=== PATIENT | female | born 1960 | race Caucasian/White ===

== ENCOUNTER → 2021-01-02 13:15 | Outpatient (CLI) | payer BC, SELFPAY ==
--- NOTE | ~2021-01-02 | MM_ITS ---
EXAMINATION: MM screening [facility] BI w carlos HISTORY: Screening mammogram TECHNIQUE: Craniocaudal and mediolateral oblique 3-D tomosynthesis images were obtained and synthetic 2-D images were generated. CAD analysis was submitted and interpreted. COMPARISON: 03/23/2015, 08/24/2008, 08/14/2008 BREAST PARENCHYMAL COMPOSITION: The breasts are almost entirely fatty. FINDINGS: There is no evidence of suspicious mass, calcification, or architectural distortion to sugg est malignancy in either breast. There has been no suspicious interval change. IMPRESSION: 1. No mammographic evidence of malignancy. 2. Recommend routine screening mammography in one year. BI-RADS Category 1: Negative Reviewed, dictated and finalized at location A.
== END ==
PROVIDERS: PCP Family Medicine; Visit Provider Family Medicine
DX: Z12.31 Encounter for screening mammogram for malignant neoplasm of breast (principal)
CPT/HCPCS: 77063; 77067

== ENCOUNTER → 2022-07-30 15:21 | Outpatient (CLI) | payer BC, SELFPAY ==
--- NOTE | ~2022-07-30 | CT_ITS ---
EXAMINATION: CT lung screening DATE: 07/30/2022 16:11 INDICATION: Personal history of nicotine dependence, prior smoker with 30 pack year history TECHNIQUE: Computed tomography (CT) of the chest was performed without intravenous contrast. The dose -length product (DLP) was 147.56 mGy-cm. Automated exposure control and iterative reconstruction tech BUX were employed. COMPARISON: None FINDINGS: There is mild emphysema. There is a 2 mm nodule of the right upper lobe. The lungs are free of acute opacities. Calcified pulmonary nodules are consistent with old granulomatous disease. Calci fied coronary artery atherosclerosis is noted. No pathologically enlarged thoracic lymph nodes are id entified. The heart size is normal. The gallbladder is surgically absent. There is mild thoracic spon dylosis. IMPRESSION: 1. Lung-RADS category 2: Benign appearance or behavior. Continue annual screening with noncontrast lo w-dose chest CT in 12 months. Reviewed, dictated and finalized at location L. MING INSPECTOR IMPRESSION: 1. Lung-RADS category 2: Benign appearance or behavior. Continue annual screeni ng with noncontrast low-dose chest CT in 12 months.
== END ==
PROVIDERS: PCP Family Medicine; Visit Provider Family Medicine
DX: Z12.2 Encounter for screening for malignant neoplasm of respiratory organs (principal); Z87.891 Personal history of nicotine dependence; R05.9 Cough, unspecified; R06.2 Wheezing
CPT/HCPCS: 71271

== ENCOUNTER 2022-08-08 14:32 | Outpatient (CLI) | payer BC, SELFPAY ==
--- NOTE | 2022-08-08 15:43 | WPDPFTINT ---
PFT Procedure Performed PFT Procedure Performed Spirometry with Pre/Post Bronchodilator Plethysmography (Lung Vol) Diffusing Cap (DLCO) Flow Vol Loop PFT Interpretation This is a pulmonary function test with pre and post-bronchodilator spirometry, plethysmography and diffusing capacity. The test was performed and results interpreted in accordance with the 2019 and 2005 ATS/ERS Task Force guidelines respectively using the Global Lung Function Initiative-2012 reference equations. Patient demonstrated good effort and cooperation. Reproducibility criteria were met. The quality of the pre bronchodilator spirometry maneuver was Grade B and post bronchodilator spirometry maneuver was Grade B. Findings: Spirometry: the contour the inspiratory and expiratory flow tracing are normal. The pre bronchodilator FVC is 2.97 L, 92% predicted. The pre bronchodilator FEV1 is 2.26 L, 89% predicted. The pre bronchodilator FEV1: FVC ratio 76%. The post bronchodilator FVC is 3.01 L, representing 1% increase. The post bronchodilator FEV1 is 2.35 L, representing a 4% increase. The post bronchodilator FEV1: FVC ratio 78%. Plethysmography: The total lung capacity is 4.60 L, 89% predicted. The functional residual capacity is 1.99 L, 68% predicted. The residual volume is 1.63 L, 79% predicted. Diffusing capacity: The diffusing capacity unadjusted for hemoglobin and carboxyhemoglobin hemoglobin is 16.5, 75% predicted. The diffusing capacity adjusted for alveolar volume is 4.14, 95% predicted. Impression: The spirometry is normal without evidence of an obstructive abnormality. There is no significant improvement after inhaling a single dose of albuterol. The lung volumes are normal. The diffusing capacity is normal. There are no prior studies for comparison
== END 2022-08-08 14:33 | disposition home or self-care (01) ==
LOC: ANHPFT 14:33
PROVIDERS: PCP Family Medicine; Visit Provider Family Medicine
DX: R06.2 Wheezing (principal); J43.9 Emphysema, unspecified; Z87.891 Personal history of nicotine dependence; Z72.89 Other problems related to lifestyle
CPT/HCPCS: 94060; 94726; 94729

== ENCOUNTER 2022-10-31 08:06 | Outpatient (CLI) | payer BC, SELFPAY ==
[2022-10-31 10:57] LABS: Toxigenic C. Diff NEGATIVE (NEGATIVE)
== END 2022-10-31 08:07 | disposition home or self-care (01) ==
LOC: ANHLAB 08:07
PROVIDERS: PCP Family Medicine; Visit Provider Nurse Practitioner Family
DX: R19.7 Diarrhea, unspecified (principal)
CPT/HCPCS: 87493

== ENCOUNTER 2022-11-13 00:54 | Day surgery (SDC) | payer BC, SELFPAY ==
[2022-11-03 14:43] VITALS: BMI 32.5
--- NOTE | 2022-11-12 15:11 | PM.HPGS ---
History of Present Illness History of Present Illness Consent: Risks, benefits, and alternatives have been discussed and questions answered. Patient agrees to proceed with procedure. Chief complaint: diarrhea Narrative: Judy Moss is a 62 year old female referred?for evaluation of diarrhea. She reports approximately 10 episodes of non-bloody watery stools with nighttime awakening and urgency since August 26. ? States symptoms came on abruptly.? She reports associated intermittent lower abdominal cramping that improves after bowel movement.? Recent stool studies, O and P, and Giardia were negative.? She was noted to have a mildly elevated stool calprotectin at 121. ? She denies any family history of ulcerative colitis or Crohn's disease.? She reports diarrhea most often occurs 10-40 minutes after eating but cannot identify any specific food that makes her symptoms worse.? Approximately 1 month prior to the diarrhea starting she began Saxenda for weight loss, she stop this 3 weeks ago with no improvement in her diarrhea. ? She denies any recent antibiotic use, recent travel or sick contacts. No Nsaid use. She reports a 20 lb weight loss since this has started.? Review of Systems Review of Systems: All systems reviewed & are unremarkable except as noted in HPI and below PMFSH Family History Family History Mother Family history of thyroid disease Diabetes mellitus Hypertension Family history of elevated blood lipids Family history of malignant neoplasm Sibling Family history of thyroid disease Father Diabetes mellitus Hypertension Family history of elevated blood lipids Grandparent Family history of malignant neoplasm Family history of malignant neoplasm of breast Social History Social History Smoking packs per day: 1 Smoking cigarettes per day: 20.0 Years smoked: 30 Smoking pack-years: 30.00 Smoking status: Current every day smoker Tobacco type: cigarettes Smoking end date: 07/20/14 Additional smoking assessment comments: vapes e-cigarette daily Alcohol intake: current Drinks per week: 4 Substance use: never Substance use type: does not use Lack of Transportation: No Lack of Food: Never True Current Housing: I Have Housing Concerned About Future Housing: No Difficulty Paying Gas/Electric Bills: No Difficulty Paying for Meds: No Currently Unemployed: No Education: Bachelor's Degree Difficulty w/ Childcare or Family Care: No Living arrangements: alone Spiritual care concerns: No Meds Home Medications and Allergies Home Medications Medication Instructions Recorded Confirmed Type telmisartan 20 mg tablet 20 mg PO DAILY #90 tabs 03/20/22 11/03/22 Rx levalbuterol tartrate 45 2 inh inhalation Q6H #15 grams 05/01/22 11/03/22 Rx mcg/actuation aerosol inhaler liraglutide (weight loss) 3 mg/0.5 See Rx Instructions subcut 07/23/22 11/03/22 Rx mL (18 mg/3 mL) subcut pen injector .COMPLEX #15 mL pen needle, diabetic 32 gauge x #100 ea 10/16/22 Rx (BD Natalya 2nd Gen Pen Needle) Allergies Allergy/AdvReac Type Severity Reaction Status Date / Time beef derived (bovine) Allergy Unknown diarrhea Verified 11/13/22 09:40 codeine Allergy Unknown hallucinati Verified 11/13/22 09:40 on metformin AdvReac Intermediate Diarrhea Verified 11/13/22 09:40 Exam Const: General: alert Orientation/consciousness: patient oriented x3 Resp: Auscultation: clear to auscultation bilaterally Cardio: Rhythm: regular rhythm GI: GI Palp: Yes Soft to palpation and No Tenderness to palpation present (GI) Neuro: General: patient oriented x3 Assessment and Plan Assessment and plan (1) Diarrhea: Code(s): R19.7 - Diarrhea, unspecified Status: Acute Assessment and Plan: Colonoscopy with possible biopsy or polypectomy or cautery or injectio
[2022-11-13 09:41] VITALS: BP 126/93; PULSE 116; RESP 19; TEMP 36.4; O2SAT 99
[2022-11-13] MEDS: LACTATED RINGERS 1,000 ML 150 ML IV CONT (09:51)
--- NOTE | 2022-11-13 10:24 | WPDANESEPPF ---
Anes - Initial Pre Proc Eval Procedure: Operation Date: 11/13/22 11:00 Proposed Procedures p Colonoscopy - Joseph Concepcion MD Date/Time: 11/13/22 10:24 Surgeon: Joseph Concepcion MD Pre Op Diagnosis: diarrhea Patient Data Age: 62 Gender: F Height: 1.65 m Weight: 88.5 kg Last Vital Signs Temp 36.4 C L 11/13/22 09:41 Pulse 116 H 11/13/22 09:41 Resp 19 11/13/22 09:41 BP 126/93 H 11/13/22 09:41 Pulse Ox 99 11/13/22 09:41 O2 Del Method Room Air 11/13/22 09:41 Allergies Allergy/AdvReac Type Severity Reaction Status Date / Time beef derived (bovine) Allergy Unknown diarrhea Verified 11/13/22 09:40 codeine Allergy Unknown hallucinati Verified 11/13/22 09:40 on metformin AdvReac Intermediate Diarrhea Verified 11/13/22 09:40 Home Medications Medication Instructions Recorded Confirmed Type telmisartan 20 mg tablet 20 mg PO DAILY #90 tabs 03/20/22 11/03/22 Rx levalbuterol tartrate 45 2 inh inhalation Q6H #15 grams 05/01/22 11/03/22 Rx mcg/actuation aerosol inhaler liraglutide (weight loss) 3 mg/0.5 See Rx Instructions subcut 07/23/22 11/03/22 Rx mL (18 mg/3 mL) subcut pen injector .COMPLEX #15 mL pen needle, diabetic 32 gauge x #100 ea 10/16/22 Rx 32 (BD Natalya 2nd Gen Pen Needle) Patient hx anesthesia problems: none Family hx anesthesia problems: none Results Review: All pre-operative results and documents have been reviewed as part of the pre-operative evaluation. [facility] Family History Family History Mother Family history of thyroid disease Diabetes mellitus Hypertension Family history of elevated blood lipids Family history of malignant neoplasm Sibling Family history of thyroid disease Father Diabetes mellitus Hypertension Family history of elevated blood lipids Grandparent Family history of malignant neoplasm Family history of malignant neoplasm of breast Social History Social History Smoking packs per day: 1 Smoking cigarettes per day: 20.0 Years smoked: 30 Smoking pack-years: 30.00 Smoking status: Current every day smoker Tobacco type: cigarettes Smoking end date: 07/20/14 Additional smoking assessment comments: vapes e-cigarette daily Alcohol intake: current Drinks per week: 4 Substance use: never Substance use type: does not use Lack of Transportation: No Lack of Food: Never True Current Housing: I Have Housing Concerned About Future Housing: No Difficulty Paying Gas/Electric Bills: No Difficulty Paying for Meds: No Currently Unemployed: No Education: Bachelor's Degree Difficulty w/ Childcare or Family Care: No Living arrangements: alone Spiritual care concerns: No Anes - Eval Final PreProcedure Day of Procedure 11/13/22 10:24 Patient weight: obese Heart: regular rate and rhythm Lungs: decreased breath sounds Airway: Mallampati scale class II Neurological: alert and oriented Last oral intake: >/= 8 hours ASA classification: III Emergent: no Anesthetic plan: proceed Anesthesia type and monitoring: general GIVS and standard monitoring Results Review: All pre-operative results and documents have been reviewed as part of the pre-operative evaluation. Informed Consent: The patient's anesthetic plan and its attendant risks and benefits were discussed with the patient/family/POA. Questions were solicited and answers provided to the satisfaction of the patient/family/POA.
[2022-11-13 10:45] VITALS: BP 115/71; PULSE 97; RESP 19; O2SAT 97
[2022-11-13 10:55] VITALS: BP 118/76; PULSE 92; RESP 20; O2SAT 100
--- NOTE | 2022-11-13 11:06 | SUR.PHASEII ---
Patient had some complaints of nausea and cramping. BRAZE OPERATOR provided Ondansetron and Famotidine. Patient stated nausea and cramping is improving after those had been given.
== END 2022-11-13 11:23 | disposition home or self-care (01) ==
PROVIDERS: PCP Family Medicine; Visit Provider Internal Medicine Gastroenterology
PROC: 0DJD8ZZ Inspection of Lower Intestinal Tract, Via Natural or Artificial Opening Endoscopic (ICD-10-PCS; CPT 45378; principal; 2022-11-13 11:00)
DX: K52.832 Lymphocytic colitis (principal); Z79.51 Long term (current) use of inhaled steroids; Z79.899 Other long term (current) drug therapy; F17.290 Nicotine dependence, other tobacco product, uncomplicated; E66.9 Obesity, unspecified; Z68.32 Body mass index [BMI] 32.0-32.9, adult
CPT/HCPCS: 45380; 88305; J0131; J2704; J7120

== ENCOUNTER 2023-02-03 08:25 | Outpatient (CLI) | payer BC, SELFPAY ==
--- NOTE | 2023-02-03 11:15 | NEURO_ITS ---
Impression: # Complains of cramps in lower extremities. # Normal Nerve Conduction Study. # Normal needle/EMG without any evidence of myotonia or denervation potentials. # Clinical correlation recommended. Nerve Conduction Studies Anti Sensory Summary Table Stim Site NR Peak (ms) P-T Amp (?V) Site1 Site2 Delta-P (ms) Dist (cm) Sam (m/s) Left Sup Fibular Anti Sensory (Ant Lat Mall) 14 cm 3.5 1.7 14 cm Ant Lat Mall 3.5 16.0 46 Right Sup Fibular Anti Sensory (Ant Lat Mall) 14 cm 3.6 12.3 14 cm Ant Lat Mall 3.6 16.0 44 Left Sural Anti Sensory (Lat Mall) Calf 4.2 10.1 Calf Lat Mall 4.2 18.0 43 Right Sural Anti Sensory (Lat Mall) Calf 4.1 4.7 Calf Lat Mall 4.1 18.0 44 Motor Summary Table Stim Site NR Onset (ms) O-P Amp (mV) Site1 Site2 Delta-0 (ms) Dist (cm) Sam (m/s) Left Peroneal Motor (Vastus Med) Ankle 4.1 1.0 Popit Ankle 8.9 41.0 46 Popit 13.0 3.1 Right Peroneal Motor (Vastus Med) Ankle 4.0 4.1 Popit Ankle 6.9 37.0 54 Popit 10.9 3.8 Left Tibial Motor (Abd Sheets Brev) Ankle 4.5 7.6 Knee Ankle 9.0 42.0 47 Knee 13.5 6.1 Right Tibial Motor (Abd Sheets Brev) Ankle 4.3 6.8 Knee Ankle 9.2 40.0 43 Knee 13.5 4.4 F Wave Studies NR F-Lat (ms) L-R F-Lat (ms) Left Peroneal (Mrkrs) (EDB) 50.19 0.00 Right Peroneal (Mrkrs) (EDB) 50.19 0.00 Left Tibial (Mrkrs) (Abd Hallucis) 51.69 0.32 Right Tibial (Mrkrs) (Abd Hallucis) 51.37 0.32 EMG Side Muscle Nerve Root Ins Act Fibs Amp Dur Recrt Comment Right AntTibialis Dp Br Fibular L4-5 Nml Nml Nml Nml Nml Right Gastroc Tibial S1-2 Nml Nml Nml Nml Nml Right Fibularis Long Sup Br Fibular L5-S1 Nml Nml Nml Nml Nml Right Flex Dig Long Tibial L5-S2 Nml Nml Nml Nml Nml Right Ext Dig Brev Dp Br Fibular L5, S1 Nml Nml Nml Nml Nml Left AntTibialis Dp Br Fibular L4-5 Nml Nml Nml Nml Nml Left Gastroc Tibial S1-2 Nml Nml Nml Nml Nml Left Fibularis Long Sup Br Fibular L5-S1 Nml Nml Nml Nml Nml Left Flex Dig Long Tibial L5-S2 Nml Nml Nml Nml Nml Left Ext Dig Brev Dp Br Fibular L5, S1 Nml Nml Nml Nml Nml MTDD
== END 2023-02-03 08:26 | disposition home or self-care (01) ==
LOC: ANHNEURO 08:28
PROVIDERS: PCP Family Medicine; Visit Provider Family Medicine
DX: R25.2 Cramp and spasm (principal)
CPT/HCPCS: 95886; 95910

== ENCOUNTER 2023-02-25 14:01 | Outpatient (CLI) | payer BC, SELFPAY ==
--- NOTE | ~2023-02-25 | US_ITS ---
EXAMINATION: US arterial ankle brachial ind DATE: 02/25/2023 15:19 INDICATION: Lower limb nocturnal cramping. TECHNIQUE: Segmental pressures and plethysmographic and Doppler waveforms of the brachial and lower e xtremity arteries were obtained. COMPARISON: None. FINDINGS: Right and left brachial artery pressures of 123 mm Hg and 141 mm Hg, respectively, are concordant (no rmal difference <= 30 mmHg). The right ankle-brachial index (LUIS ANGEL) is 1.01 (normal >= 0.9-1.0). The right great toe-brachial index (TBI) is 0.57 (normal >= 0.65). Arterial Doppler waveforms are biphasic with brisk systolic upstrokes at both right posterior tibial and dorsalis pedis arteries. The left LUIS ANGEL is 0.99. The left TBI is 0.57. Arterial Doppler waveforms are biphasic with brisk systol ic upstrokes at both left posterior tibial and dorsalis pedis arteries. IMPRESSION: 1. Mild arterial occlusive disease to the bilateral lower limbs with borderline bilateral ABIs and mi ldly decreased bilateral TBI's Reviewed, dictated and finalized at location B. IMPRESSION: 1. Mild arterial occlusive disease to the bilateral lower limbs with borderline bilateral ABIs and mildly decreased bilateral TBI's
== END 2023-02-25 14:02 | disposition home or self-care (01) ==
LOC: ANHIMG 14:02
PROVIDERS: PCP Family Medicine; Visit Provider Family Medicine
DX: R25.2 Cramp and spasm (principal); I73.9 Peripheral vascular disease, unspecified
CPT/HCPCS: 93922

== ENCOUNTER → 2023-08-01 09:41 | Outpatient (CLI) | payer BC, SELFPAY ==
--- NOTE | ~2023-08-01 | MM_ITS ---
EXAMINATION: MM screening [facility] BI w carlos HISTORY: Screening TECHNIQUE: Craniocaudal and mediolateral oblique 3-D tomosynthesis images were obtained and synthetic 2-D images were generated. CAD analysis was submitted and interpreted. COMPARISON: Comparison to multiple prior studies sequentially, with oldest reviewed study dated 10/2014. BREAST PARENCHYMAL COMPOSITION: There are scattered areas of fibroglandular density. FINDINGS: There is no evidence of suspicious mass, calcification, or architectural distortion to sugg est malignancy in either breast. There has been no suspicious interval change. IMPRESSION: 1. No mammographic evidence of malignancy. 2. Recommend routine screening mammography in one year. BI-RADS Category 1: Negative Reviewed, dictated and finalized at location A. CTOR OF INCOME TAX
== END ==
PROVIDERS: PCP Family Medicine; Visit Provider Family Medicine
DX: Z12.31 Encounter for screening mammogram for malignant neoplasm of breast (principal)
CPT/HCPCS: 77063; 77067

== ENCOUNTER → 2023-08-17 11:15 | Outpatient (CLI) | payer BC, SELFPAY ==
--- NOTE | ~2023-08-17 | CT_ITS ---
CT Scan of the Chest without Contrast: Clinical Indication: Lung cancer screening, personal history of nicotine dependence Technique: Contiguous sections were acquired throughout the chest without intravenous contrast. Dose reduction technique was used on this scan by utilizing automated exposure control and iterative recon struction technique. The dose-length product (DLP) was 130.59 mGy-cm. COMPARISON: 07/30/2022 Findings: There is no evidence of any significant mediastinal, hilar or axillary lymphadenopathy. The mediastin al soft tissues appear normal. There is no evidence of pleural or pericardial effusion. The lungs are clear, aside from calcified left lower lobe granuloma. 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 Impression: Lung RADS 2: Benign appearance. [address] advised. Reviewed, dictated and finalized at [facility]. ER SHEAR OPERATOR Impression: Lung RADS 2: Benign appearance. [address] advised.
== END ==
PROVIDERS: PCP Family Medicine; Visit Provider Family Medicine
DX: Z12.2 Encounter for screening for malignant neoplasm of respiratory organs (principal); Z87.891 Personal history of nicotine dependence; R04.2 Hemoptysis
CPT/HCPCS: 71271

== ENCOUNTER 2024-01-19 14:31 | Outpatient (CLI) | payer BC, SELFPAY ==
--- NOTE | ~2024-01-19 | XR_ITS ---
XR hip LT 2V w AP pelvis Ordering provider: Winnie Plaza MD History: . Posterior Left hip pain for 1 month, no injury . Comparison: None. FINDINGS: BONES: No acute fracture or dislocation. HIP JOINT SPACES: Normal. SACROILIAC JOINT SPACES/LUMBAR SPINE: The sacroiliac joint spaces are normal. Mild degenerative pettit es of the visualized lower lumbar spine. PUBIC SYMPHYSIS: Normal. SOFT TISSUES: Normal. IMPRESSION: No acute osseous abnormality pelvis and left hip. Reviewed, dictated and finalized at location A.
== END 2024-01-19 14:32 ==
PROVIDERS: PCP Family Medicine; Visit Provider Family Medicine
DX: M25.552 Pain in left hip (principal)
CPT/HCPCS: 73502

== ENCOUNTER 2024-02-17 08:13 | Outpatient (CLI) | payer BC, SELFPAY ==
--- NOTE | ~2024-02-17 | MR_ITS ---
EXAMINATION: MR lumbar spine wo con DATE: 02/17/2024 09:05 INDICATION: Sciatica, unspecified side. Low back pain. Left leg pain. TECHNIQUE: Magnetic resonance imaging (MRI) of the lumbar spine was performed without intravenous con trast. Sequences included sagittal T2-weighted FSE, sagittal T2-weighted FS FSE, sagittal T1-weighted FSE, and axial T2-weighted FSE. COMPARISON: None FINDINGS: There is 3 degrees dextrocurvature of lumbar spine. There is 4 mm anterolisthesis of L3 on L4. There is mild chronic anterior wedging of T12 vertebral body. There are Schmorl's nodes at multip le levels. There is moderately decreased disc height at L4-L5. The distal spinal cord signal intensit y is normal. The conus medullaris is at T12-L1. There is moderate atrophy of left kidney. The followi ng disc levels are specifically discussed: L1-L2: The disc does not extend beyond the endplate margin. There is severe bilateral facet joint ost eoarthritis. There is no neural foraminal stenosis. There is no central canal stenosis. L2-L3: The disc is bulging and has an annular fissure. There is severe bilateral facet joint osteoart hritis. There is mild bilateral neural foraminal stenosis. There is mild central canal stenosis. L3-L4: The disc does not extend beyond the endplate margin. There is severe bilateral facet joint ost eoarthritis. There is mild bilateral neural foraminal stenosis. There is moderate central canal steno sis. L4-L5: The disc is bulging with superimposed large left central extrusion. There is moderate bilatera l facet joint osteoarthritis. There is mild bilateral neural foraminal stenosis. There is severe cent ral canal stenosis. L5-S1: The disc does not extend beyond the endplate margin. There is severe bilateral facet joint ost eoarthritis. There is no neural foraminal stenosis. There is no central canal stenosis. IMPRESSION: 1. Severe spondylosis at L4-L5 and mild spondylosis at other levels. Reviewed, dictated and finalized at location A.
== END 2024-02-17 08:14 ==
LOC: GOSHIMG 08:14
PROVIDERS: PCP Family Medicine; Visit Provider Family Medicine
DX: M54.30 Sciatica, unspecified side (principal); M47.896 Other spondylosis, lumbar region
CPT/HCPCS: 72148

== ENCOUNTER 2024-03-23 11:39 | Outpatient (CLI) | payer BC, SELFPAY ==
[2024-03-23 21:51] LABS: Alanine Aminotransferase 30 U/L (6-35); Albumin Level 4.3 g/dL (3.5-5.1); Alkaline Phosphatase 66 U/L (38-126); Amylase 62 U/L (30-110); Anion Gap 9 mmol/L (4-12); Aspartate Amino Transferase 43 U/L (14-36); Bilirubin,Total 0.6 mg/dL (0.2-1.3); Blood Urea Nitrogen 12 mg/dL (7-17); Calcium 9.5 mg/dL (8.4-10.2); Carbon Dioxide 29 mmol/L (22-30); Chloride 100 mmol/L (98-107); Estimated Glomerular Filt Rate > 60; Glucose 94 mg/dL (65-110); Lipase 97 U/L (23-300); Potassium 4.1 mmol/L (3.4-5.0); Sodium 138 mmol/L (137-145)
== END 2024-03-23 11:40 | disposition home or self-care (01) ==
LOC: ANHGOSHLAB 11:41
PROVIDERS: PCP Family Medicine; Visit Provider Family Medicine
DX: R10.9 Unspecified abdominal pain (principal)
CPT/HCPCS: 36415; 80053; 82150; 83690

== ENCOUNTER 2024-03-28 08:18 | Outpatient (CLI) | payer BC, SELFPAY ==
--- NOTE | ~2024-03-28 | CT_ITS ---
EXAMINATION: CT abdomen pelvis wo con DATE: 03/28/2024 08:38 INDICATION: Right upper quadrant and right flank abdominal pain. TECHNIQUE: Computed tomography (CT) of the abdomen and pelvis was performed without intravenous contr ast. Automated exposure control and iterative reconstruction technique were employed. The dose-length product was 781.97 mGy-cm. COMPARISON: CT abdomen and pelvis 09/05/2017 FINDINGS: The visualized portions of the lung bases demonstrate mild atelectasis. A calcified left claire ng nodule is consistent with old granulomatous disease. No pleural effusion. The heart size is normal . There are coronary artery calcifications. No pericardial effusion. The liver and spleen are normal. There are changes of cholecystectomy. The pancreas and adrenal glands are normal. There is a [address] one in right kidney. There is severe atrophy of left kidney. There are no dilated loops of bowel. The appendix is normal. There are no pathologically enlarged lymph nodes. There is no free intraperitone al fluid. Aortic atherosclerosis is noted. There is a lipoma in right iliopsoas muscle. There is mode rate thoracic and lumbar spondylosis. IMPRESSION: 1. 2 mm nonobstructing right kidney stone. Reviewed, dictated and finalized at location A.
== END 2024-03-28 08:19 | disposition home or self-care (01) ==
LOC: GOSHIMG 08:20
PROVIDERS: PCP Family Medicine; Visit Provider Family Medicine
DX: R10.9 Unspecified abdominal pain (principal); N20.0 Calculus of kidney
CPT/HCPCS: 74176

== ENCOUNTER 2024-07-28 08:10 | Outpatient (CLI) | payer BC, SELFPAY ==
[2024-07-28 09:18] LABS: Basophils Absolute Auto 0.1 K/mm3 (0.0-0.1); Basophils Percent Auto 1.2 % (0.2-1.2); Eosinophils Absolute Auto 0.1 K/mm3 (0-0.3); Eosinophils Percent Auto 2.1 % (0-4.4); Hematocrit 44.1 % (37.0-47.0); Hemoglobin 14.4 g/dL (12.0-15.0); Immature Granulocyte Absolute 0.03 K/mm3 (0.00-0.031); Immature Granulocyte Percent A 0.4 % (0-0.5); Lymphocytes Absolute Auto 1.68 K/mm3 (0.9-3.2); Mean Corpuscular HGB Conc 32.7 g/dl (32-36); Mean Corpuscular Hemoglobin 30.8 pg (26-34); Mean Corpuscular Volume 94.2 fl (80-100); Mean Platelet Volume 9.5 fl (7.4-10.4); Monocytes Absolute Auto 0.4 K/mm3 (0.1-0.6); Monocytes Percent Auto 6.4 % (2.6-8.5); Neutrophils Absolute Auto 4.4 K/mm3 (1.3-6.7); Neutrophils Percent Auto 64.9 % (45.5-73.1); Platelet Count Result 294 k/mm3 (150-375); Red Blood Count 4.68 M/mm3 (4.2-5.4); Red Cell Distribution Width 13.2 % (11.5-14.5); White Blood Count 6.7 K/mm3 (4.5-10.0)
[2024-07-28 09:31] LABS: Alanine Aminotransferase 22 U/L (6-35); Albumin Level 4.4 g/dL (3.5-5.1); Alkaline Phosphatase 69 U/L (38-126); Anion Gap 4 mmol/L (4-12); Aspartate Amino Transferase 33 U/L (14-36); Bilirubin,Total 0.8 mg/dL (0.2-1.3); Blood Urea Nitrogen 12 mg/dL (7-17); Calcium 9.5 mg/dL (8.4-10.2); Carbon Dioxide 30 mmol/L (22-30); Chloride 104 mmol/L (98-107); Cholesterol 155 mg/dL (0-200); Estimated Glomerular Filt Rate > 60; Glucose 85 mg/dL (65-110); HDL Direct 79 mg/dL; Potassium 4.9 mmol/L (3.4-5.0); Sodium 138 mmol/L (137-145); Triglycerides 81 mg/dL (<150)
[2024-07-28 09:35] LABS: Hemoglobin A1C 4.9 % (<5.7)
[2024-07-28 09:42] LABS: LDL Cholesterol Direct 52 mg/dL
[2024-07-28 09:44] LABS: Vitamin D 25 Hydroxy 96.3 ng/mL
== END 2024-07-28 08:11 | disposition home or self-care (01) ==
LOC: ANHGOSHLAB 08:12
PROVIDERS: PCP Family Medicine; Visit Provider Family Medicine
DX: E78.2 Mixed hyperlipidemia (principal); Z00.00 Encounter for general adult medical examination without abnormal findings; G62.9 Polyneuropathy, unspecified; R73.03 Prediabetes; J43.9 Emphysema, unspecified; E55.9 Vitamin D deficiency, unspecified; R10.9 Unspecified abdominal pain
CPT/HCPCS: 36415; 80053; 80061; 82306; 82607; 83036; 85025

== ENCOUNTER 2024-08-19 08:11 | Outpatient (CLI) | payer BC, SELFPAY ==
--- NOTE | ~2024-08-19 | CT_ITS ---
EXAMINATION:CT lung screening DATE: 08/19/2024 08:43 INDICATION: Encounter for screening for malignant neoplasm. Smoker who quit 8 years ago with a 30 pac k year history. TECHNIQUE: Computed tomography (CT) of the chest was performed without intravenous contrast. Automate d exposure control and iterative reconstruction technique were employed. The dose-length product (DLP ) was 74.61 mGy-cm. COMPARISON: Chest CT 08/17/2023 FINDINGS: Calcified left lung nodules are consistent with old granulomatous disease. There are 3 nodu les in right lung measuring up to 3 mm. No pleural effusion. The heart size is normal. There are sanjuana nary artery calcifications. No pericardial effusion. There are changes of cholecystectomy. There is m oderate thoracic spondylosis. IMPRESSION: 1. Lung-RADS category 2: Benign appearance or behavior. Continue annual screening with noncontrast lo w-dose chest CT in 12 months. Reviewed, dictated and finalized at location A. ALT DISTRIBUTOR TENDER IMPRESSION: 1. Lung-RADS category 2: Benign appearance or behavior. Continue annual screeni ng with noncontrast low-dose chest CT in 12 months.
== END 2024-08-19 08:12 | disposition home or self-care (01) ==
LOC: GOSHIMG 08:12
PROVIDERS: PCP Family Medicine; Visit Provider Family Medicine
DX: Z12.2 Encounter for screening for malignant neoplasm of respiratory organs (principal); Z87.891 Personal history of nicotine dependence
CPT/HCPCS: 71271

== ENCOUNTER 2024-11-01 13:20 | Outpatient (CLI) | payer BC, SELFPAY ==
--- NOTE | ~2024-11-01 | MM_ITS ---
EXAMINATION: MM screening [facility] BI w carlos HISTORY: Screening TECHNIQUE: Craniocaudal and mediolateral oblique 3-D tomosynthesis images were obtained and synthetic 2-D images were generated. CAD analysis was submitted and interpreted. COMPARISON: Comparison to multiple prior studies sequentially, with oldest reviewed study dated 10/2014. BREAST PARENCHYMAL COMPOSITION: Not Dense: The breasts are almost entirely fatty. FINDINGS: There is no evidence of suspicious mass, calcification, or architectural distortion to sugg est malignancy in either breast. There has been no suspicious interval change. IMPRESSION: 1. No mammographic evidence of malignancy. 2. Recommend routine screening mammography in one year. BI-RADS Category 1: Negative Reviewed, dictated and finalized at location B.
== END 2024-11-01 13:21 | disposition home or self-care (01) ==
LOC: MICIMG 13:21
PROVIDERS: PCP Family Medicine; Visit Provider Family Medicine
DX: Z12.31 Encounter for screening mammogram for malignant neoplasm of breast (principal)
CPT/HCPCS: 77063; 77067